=== PATIENT | female | born 1990 | race African-American/Black ===

== ENCOUNTER 2016-09-17 21:37 | Emergency (ER) | payer MEDICAID, MEDICARE ==
[~2016-09-17] VITALS: Ht 162.6 cm; Wt 52.0 kg
[~2016-09-17 21:37] MED LIST: ZYPREXA
[2016-09-17 22:50] VITALS: BP 124/86
[2016-09-17 23:21] LABS: BASOPHILS % 0.8 % (0.0-2.0); EOSINOPHILS % 2.2 % (0.0-5.0); HEMATOCRIT. 38.4 % (36.0-48.0); HEMOGLOBIN. 12.7 g/dL (12.0-16.0); LYMPHOCYTES % 24.4 % (20.0-50.0); MEAN CORPUSCULAR HEMOGLOBIN 28.6 pg (28.0-32.0); MEAN CORPUSCULAR HGB CONC 33.1 g/dL (31.0-37.0); MEAN CORPUSCULAR VOLUME 86.5 fL (81.0-99.0); MEAN PLATELET VOLUME 8.1 fl (7.4-10.4); MONOCYTES % 7.1 % (2.0-8.0); NEUTROPHILS % 65.5 % (40.0-76.0); PLATELET 475 x1000/uL (130-400); RED BLOOD CELL COUNT 4.43 mill/uL (4.2-5.4); RED CELL DISTRIBUTION WIDTH 12.9 % (11.6-14.6)
[2016-09-17 23:34] LABS: ACETAMINOPHEN < 2 ug/mL (10-30); ANION GAP 14; CALCIUM 8.2 mg/dL (8.5-10.1); CARBON DIOXIDE 26 mEq/L (21-32); CHLORIDE 107 mEq/L (98-107); ETHANOL BLOOD < 10 mg/dL; INDEX HEMOLYSI 1 (1-3); INDEX ICTERIC 1 (1-4); INDEX LIPEMIC 1 (1-3); UREA NITROGEN BLOOD 12 mg/dL (7-21); eGFR > 60 mL/min (>60)
[2016-09-18 00:06] LABS: *AMPHETAMINES SCREEN URINE NEGATIVE (NEGATIVE); *BARBITURATES SCREEN URINE NEGATIVE (NEGATIVE); *BENZODIAZEPINES SCREEN URINE NEGATIVE (NEGATIVE); *COCAINE SCREEN URINE NEGATIVE (NEGATIVE); ECSTASY MDMA SCREEN URINE NEGATIVE (NEGATIVE); METHADONE URINE SCREEN NEGATIVE (NEGATIVE); OPIATES URINE SCREEN NEGATIVE (NEGATIVE); PHENCYCLIDINE URINE SCREEN NEGATIVE (NEGATIVE)
[2016-09-18 00:28] LABS: CANNABINOID URINE SCREEN PRESUMTIVE POSITIVE (NEGATIVE)
== END 2016-09-18 00:50 | disposition left against medical advice (07) ==
LOC: ER 21:40
DX: F23 Brief psychotic disorder (principal); F20.9 Schizophrenia, unspecified; R56.9 Unspecified convulsions; R44.0 Auditory hallucinations
CPT/HCPCS: 36415; 80048; 80305; 80307; 80329; 81025; 85025; 99284; G0482

== ENCOUNTER 2016-09-18 22:55 | Emergency (ER) | payer MEDICAID, MEDICARE ==
[2016-09-19 02:30] LABS: ACETAMINOPHEN < 2 ug/mL (10-30); ANION GAP 10; CALCIUM 8.3 mg/dL (8.5-10.1); CARBON DIOXIDE 26 mEq/L (21-32); CHLORIDE 109 mEq/L (98-107); ETHANOL BLOOD < 10 mg/dL; INDEX HEMOLYSI 1 (1-3); INDEX ICTERIC 1 (1-4); INDEX LIPEMIC 1 (1-3); UREA NITROGEN BLOOD 11 mg/dL (7-21); eGFR > 60 mL/min (>60)
[2016-09-19 03:19] LABS: BASOPHILS % 0.8 % (0.0-2.0); EOSINOPHILS % 3.4 % (0.0-5.0); HEMATOCRIT. 36.2 % (36.0-48.0); HEMOGLOBIN. 11.9 g/dL (12.0-16.0); LYMPHOCYTES % 33.7 % (20.0-50.0); MEAN CORPUSCULAR HEMOGLOBIN 28.5 pg (28.0-32.0); MEAN CORPUSCULAR HGB CONC 32.8 g/dL (31.0-37.0); MEAN PLATELET VOLUME 8.2 fl (7.4-10.4); NEUTROPHILS % 54.1 % (40.0-76.0); PLATELET 429 x1000/uL (130-400); RED BLOOD CELL COUNT 4.16 mill/uL (4.2-5.4); RED CELL DISTRIBUTION WIDTH 13.1 % (11.6-14.6); WHITE BLOOD COUNT 5.9 x1000/uL (4.5-11.0)
[2016-09-19 03:29] LABS: HCG SCREEN NEGATIVE
[2016-09-19 07:59] LABS: *AMPHETAMINES SCREEN URINE NEGATIVE (NEGATIVE); *BARBITURATES SCREEN URINE NEGATIVE (NEGATIVE); *BENZODIAZEPINES SCREEN URINE NEGATIVE (NEGATIVE); *COCAINE SCREEN URINE NEGATIVE (NEGATIVE); ECSTASY MDMA SCREEN URINE NEGATIVE (NEGATIVE); METHADONE URINE SCREEN NEGATIVE (NEGATIVE); OPIATES URINE SCREEN NEGATIVE (NEGATIVE); PHENCYCLIDINE URINE SCREEN NEGATIVE (NEGATIVE)
[2016-09-19 08:00] LABS: CANNABINOID URINE SCREEN PRESUMTIVE POSITIVE (NEGATIVE)
[2016-09-19 09:02] VITALS: BP 98/59
== END 2016-09-19 09:04 | disposition home or self-care (01) ==
LOC: ER 22:57
DX: F23 Brief psychotic disorder (principal); F20.9 Schizophrenia, unspecified; G40.409 Other generalized epilepsy and epileptic syndromes, not intractable, without status epilepticus
CPT/HCPCS: 36415; 80048; 80305; 80307; 80329; 84703; 85025; 99284; G0482

== ENCOUNTER 2017-01-12 15:49 | Emergency (ER) | payer MEDICARE ==
[~2017-01-12] VITALS: Ht 160 cm; Wt 60.0 kg
[2017-01-12 15:51] VITALS: BP 0/0
== END 2017-01-12 15:55 | disposition left against medical advice (07) ==
LOC: ER 15:49
DX: F98.8 Other specified behavioral and emotional disorders with onset usually occurring in childhood and adolescence (principal)
CPT/HCPCS: 99283

== ENCOUNTER 2020-07-19 11:35 | Emergency (ER) | payer MEDICAID, MEDICARE ==
[~2020-07-19] VITALS: Ht 167.6 cm; Wt 60.0 kg
[2020-07-19] MEDS ORDERED: VISCOUS LIDOCAINE 2% 15 ML UDC MM STA (12:02)
[2020-07-19 12:46] LABS: HEMATOCRIT. 42.2 % (36.0-48.0); HEMOGLOBIN. 13.9 g/dL (12.0-16.0); MEAN CORPUSCULAR HEMOGLOBIN 28.3 pg (28.0-32.0); MEAN CORPUSCULAR VOLUME 85.9 fL (81.0-99.0); MEAN PLATELET VOLUME 9.4 fl (7.4-10.4); PLATELET 242 x1000/uL (130-400); RED BLOOD CELL COUNT 4.91 mill/uL (4.2-5.4)
[2020-07-19 12:53] LABS: CHLORIDE 105 mEq/L (98-107)
[2020-07-19 13:00] LABS: ETHANOL BLOOD < 10 mg/dL
[2020-07-19 13:06] LABS: HCG SCREEN NEGATIVE
[2020-07-19] MEDS ORDERED: LORAZEPAM 2MG/ML CPJ IV ONE (14:00)
[2020-07-19] MEDS ORDERED: KETOROLAC 15MG/ML VIAL IV ONE (14:00)
[2020-07-19 14:23] LABS: PLATELET ESTIMATE NORMAL
[2020-07-19 17:52] LABS: CLARITY URINE CLEAR (CLEAR); COLOR URINE DARK YELLOW (YELLOW); KETONES URINE TRACE (NEGATIVE); LEUKOCYTE ESTERASE URINE NEGATIVE (NEGATIVE); NITRITE URINE NEGATIVE (NEGATIVE); OCCULT BLOOD URINE NEGATIVE (NEGATIVE); PH URINE 5.5 (4.5-8.0); PROTEIN URINE TRACE (NEGATIVE); SPECIFIC GRAVITY URINE 1.034 (1.005-1.030)
[2020-07-19 18:03] LABS: *BARBITURATES SCREEN URINE NEGATIVE (NEGATIVE); *BENZODIAZEPINES SCREEN URINE NEGATIVE (NEGATIVE); *COCAINE SCREEN URINE NEGATIVE (NEGATIVE)
[2020-07-19 18:04] LABS: CANNABINOID URINE SCREEN NEGATIVE (NEGATIVE); METHADONE URINE SCREEN NEGATIVE (NEGATIVE); OPIATES URINE SCREEN NEGATIVE (NEGATIVE); PHENCYCLIDINE URINE SCREEN NEGATIVE (NEGATIVE)
[2020-07-19 18:11] LABS: *AMPHETAMINES SCREEN URINE PRESUMTIVE POSITIVE (NEGATIVE)
[2020-07-19] MEDS ORDERED: QUETIAPINE FUMARATE 50MG TABLET PO SCH (21:00)
[2020-07-20 12:00] VITALS: BP 101/68
== END 2020-07-20 12:23 | disposition home or self-care (01) ==
LOC: ER 11:43
DX: F20.9 Schizophrenia, unspecified (principal); R26.9 Unspecified abnormalities of gait and mobility; F32.9 Major depressive disorder, single episode, unspecified; F15.10 Other stimulant abuse, uncomplicated; Z03.818 Encounter for observation for suspected exposure to other biological agents ruled out; F17.210 Nicotine dependence, cigarettes, uncomplicated; Z71.6 Tobacco abuse counseling
CPT/HCPCS: 36415; 80053; 80305; 80320; 81003; 84703; 85025; 87426; 96374; 96375; 99285; 99406; J1885; J2060; Z7610; G0480

== ENCOUNTER 2023-04-26 09:04 | Emergency (ER) | payer MEDICAID ==
[~2023-04-26] VITALS: Ht 165.1 cm; Wt 60.0 kg
[2023-04-26 09:06] VITALS: O2SAT 100
[2023-04-26] MEDS ORDERED: BACITRACIN ZINC OINT UDPKT TOP ONE (09:45)
[2023-04-26] MEDS ORDERED: IBUPROFEN 600MG TABLET PO ONE (09:45)
[2023-04-26] MEDS ORDERED: IBUP-2029 MT (09:54)
[2023-04-26] MEDS ORDERED: BO1 TP (09:54)
[2023-04-26 11:09] VITALS: BP 133/79
[2023-04-26 11:16] VITALS: PULSE 100; RESP 16; TEMP 98.5
== END 2023-04-26 11:16 | disposition home or self-care (01) ==
LOC: ER 09:04
DX: S00.511A Abrasion of lip, initial encounter (principal); Z88.0 Allergy status to penicillin; Z86.59 Personal history of other mental and behavioral disorders; W18.30XA Fall on same level, unspecified, initial encounter; Y93.89 Activity, other specified; Y92.89 Other specified places as the place of occurrence of the external cause; Y99.8 Other external cause status
CPT/HCPCS: 99283

== ENCOUNTER 2024-03-08 19:26 | Emergency (ER) | payer MEDICAID ==
[~2024-03-08] VITALS: Ht 172.7 cm; Wt 68.0 kg
[~2024-03-08 19:26] MED LIST changes: +BO1 TP; +IBUP-2029 MT
[2024-03-08 20:19] VITALS: O2SAT 100
[2024-03-08 22:18] LABS: BASOPHILS % 0.5 % (0.0-2.0); EOSINOPHILS % 1.9 % (0.0-5.0); HEMATOCRIT. 37.1 % (36.0-48.0); HEMOGLOBIN. 12.3 g/dL (12.0-16.0); LYMPHOCYTES % 33.3 % (20.0-50.0); MEAN CORPUSCULAR VOLUME 87.9 fL (81.0-99.0); MEAN PLATELET VOLUME 8.5 fl (7.4-10.4); MONOCYTES % 8.3 % (2.0-8.0); PLATELET 275 x1000/uL (130-400); RED BLOOD CELL COUNT 4.22 mill/uL (4.2-5.4); RED CELL DISTRIBUTION WIDTH 14.3 % (11.6-14.6); WHITE BLOOD COUNT 5.8 x1000/uL (4.5-11.0)
[2024-03-08 22:21] LABS: CHLORIDE 107 mEq/L (98-107); POTASSIUM 3.3 mEq/L (3.5-5.1); SODIUM 138 mEq/L (136-145)
[2024-03-08 22:22] LABS: CARBON DIOXIDE 27 mEq/L (21-32)
[2024-03-08 22:23] LABS: CALCIUM 8.7 mg/dL (8.7-10.4)
[2024-03-08 22:26] LABS: HCG SCREEN NEGATIVE
[2024-03-08 22:27] LABS: CREATININE 0.8 mg/dL (0.6-1.0); GLUCOSE 92 mg/dL (70-105); UREA NITROGEN BLOOD 9 mg/dL (9-23)
[2024-03-08 22:29] LABS: ACETAMINOPHEN < 2 ug/mL (10-30); ALANINE AMINOTRANSFERASE 13 IU/L (10-49); ALBUMIN 3.7 g/dL (3.2-4.8); ASPARTATE AMINOTRANSFERASE 18 IU/L (<34); BILIRUBIN TOTAL 0.6 mg/dL (0.1-1.0)
[2024-03-08 22:30] LABS: PROTEIN TOTAL 6.5 g/dL (6.0-8.3)
[2024-03-08 22:32] LABS: ETHANOL BLOOD < 10 mg/dL (<10)
[2024-03-09 00:09] LABS: CLARITY URINE CLEAR (CLEAR); COLOR URINE YELLOW (YELLOW); GLUCOSE URINE NEGATIVE (NEGATIVE); KETONES URINE NEGATIVE (NEGATIVE); LEUKOCYTE ESTERASE URINE NEGATIVE (NEGATIVE); NITRITE URINE NEGATIVE (NEGATIVE); OCCULT BLOOD URINE NEGATIVE (NEGATIVE); PH URINE 5.5 (4.5-8.0); PROTEIN URINE NEGATIVE (NEGATIVE); SPECIFIC GRAVITY URINE 1.025 (1.005-1.030); UROBILINOGEN URINE 0.2 E.U./dL (0.2-1.0)
[2024-03-09 00:25] LABS: *AMPHETAMINES SCREEN URINE NEGATIVE (NEGATIVE); *BARBITURATES SCREEN URINE NEGATIVE (NEGATIVE); *BENZODIAZEPINES SCREEN URINE NEGATIVE (NEGATIVE); *COCAINE SCREEN URINE NEGATIVE (NEGATIVE); CANNABINOID URINE SCREEN NEGATIVE (NEGATIVE); METHADONE URINE SCREEN NEGATIVE (NEGATIVE); OPIATES URINE SCREEN NEGATIVE (NEGATIVE); PHENCYCLIDINE URINE SCREEN NEGATIVE (NEGATIVE)
[2024-03-09 00:26] LABS: ECSTASY MDMA SCREEN URINE NEGATIVE (NEGATIVE)
[2024-03-09] MEDS: POTASSIUM CHLORIDE 20MEQ TABLET SR PO ONE (01:53)
[2024-03-09 12:01] VITALS: BP 118/64; PULSE 66; RESP 16; TEMP 36.72516; O2SAT 97
== END 2024-03-09 12:39 | disposition home or self-care (01) ==
LOC: ER 19:26
DX: R45.851 Suicidal ideations (principal); F31.9 Bipolar disorder, unspecified; F20.9 Schizophrenia, unspecified; Z88.0 Allergy status to penicillin; Z20.822 Contact with and (suspected) exposure to COVID-19
CPT/HCPCS: 80053; 80305; 81003; 81025; 80307; 80329; 80320; 84703; 85025; 36415; 99285; 87426; Z7610; G0480